=== PATIENT | male | born 1945 | race Caucasian/White ===

== ENCOUNTER 2019-07-10 22:10 | Inpatient (IN) | payer MEDICARE, OTHER ==
[~2019-07-10] VITALS: Ht 182.9 cm; Wt 67.6 kg
[2019-07-10] MEDS ORDERED: IV NORMAL SALINE 1000 ML BAG IV ONE (22:30)
--- NOTE | 2019-07-10 22:30 | NUR ---
Patient NORMA Parmar from [facility] for fever. Patient upon arrival flush, on 2L N/C satting at 95%, response to verbal commands. No distress noted. Placed in room 1B.
[2019-07-10] MEDS ORDERED: ACET-73 PO (22:36)
[2019-07-10] MEDS ORDERED: ACET-2154 PO (22:36)
[2019-07-10] MEDS ORDERED: NA P133E RC (22:36)
[2019-07-10] MEDS ORDERED: BISA10SU61 RC (22:36)
[2019-07-10] MEDS ORDERED: MAGN400O6 PO (22:36)
[2019-07-10] MEDS ORDERED: RIVA20TA PO (22:36)
[2019-07-10] MEDS ORDERED: CHOL10002 PO (22:36)
[2019-07-10] MEDS ORDERED: MULT-619 PO (22:36)
[2019-07-10] MEDS ORDERED: ROPI0.255 PO (22:36)
[2019-07-10 22:43] LABS: BASOPHILS % (AUTO) 0.1 % (0.0-2.0); EOSINOPHILS # (AUTO) 0.2 K/uL (0.0-0.7); EOSINOPHILS % (AUTO) 1.3 % (0.0-7.0); HEMATOCRIT 44.6 % (36.7-47.1); HEMOGLOBIN 14.7 g/dL (12.5-16.3); LYMPHOCYTES # (AUTO) 0.6 K/uL (20.0-40.0); LYMPHOCYTES % (AUTO) 5.3 % (20.5-51.5); MEAN CORPUSCULAR HEMOGLOBIN 28.9 uug (23.8-33.4); MEAN CORPUSCULAR HGB CONC 33 g/dL (32.5-36.3); MEAN CORPUSCULAR VOLUME 87.4 fL (73.0-96.2); MONOCYTES # (AUTO) 0.7 K/uL (2.0-10.0); MONOCYTES % (AUTO) 6.1 % (0.0-11.0); NEUTROPHILS % (AUTO) 87.2 % (38.5-71.5); PLATELET COUNT (AUTO) 161 K/uL (152-348); WHITE BLOOD COUNT (AUTO) 11.5 K/uL (3.6-10.2)
[2019-07-10 22:48] LABS: CREATININE 1.3 mg/dL (0.6-1.3)
[2019-07-10 23:01] LABS: BILIRUBIN,DIRECT 0.2 mg/dL (0.0-0.2); BILIRUBIN,TOTAL 0.9 mg/dL (0.2-1.0); TOTAL PROTEIN, SERUM 7.6 g/dL (6.4-8.2)
[2019-07-10 23:25] LABS: *BILIRUBIN,URIN NEGATIVE (NEGATIVE); *BLOOD, URINE 3+ (NEGATIVE); *CLARITY,URINE CLOUDY (CLEAR); *COLOR,URINE YELLOW (YELLOW); *KETONES,URINE NEGATIVE (NEGATIVE); LEUKOCYTE ESTERASE ,URINE 3+ (NEGATIVE); NITRITE, URINE POSITIVE (NEGATIVE); UGLUCOSE NEGATIVE (NEGATIVE)
--- NOTE | 2019-07-10 23:35 | NUR ---
Patient out of unit for ct scan via g[facility]y.
[2019-07-10 23:43] LABS: BACTERIA,URINE MANY /HPF (NONE SEEN); RBC,URINE 20-50 /HPF (0-3); SQUAMOUS EPITHELIAL CELL,UR FEW /HPF (NONE SEEN); WBC,URINE TNTC /HPF (0-3)
--- NOTE | 2019-07-10 23:56 | NUR ---
Patient back from ct scan with no distress noted.
[2019-07-11] MEDS ORDERED: CEFTRIAXONE 1 G in IV DEXTROSE 5% 50 ML IV ONE ×2
[2019-07-11] MEDS ORDERED: LEVOFLOXACIN 750 MG/D5W 150 ML PIGGYBACK IV ONE
--- NOTE | 2019-07-11 00:08 | NUR ---
Patient shivering, rectal temp is 99.0. ERMD aware.
[2019-07-11] MEDS ORDERED: CEFTRIAXONE /D5W 50ML IVPB **ER PYXIS IV ONE (00:12)
[2019-07-11] MEDS ORDERED: LEVOFLOXACIN 750MG/D5W 150 ML IV ONE (00:12)
[2019-07-11] MEDS ORDERED: ACETAMINOPHEN 650 MG SUPP.RECT RC ONE ×2 (00:30→00:33)
[2019-07-11] MEDS ORDERED: ACETAMINOPHEN 325 MG SUPP RC ONE (00:30)
--- NOTE | 2019-07-11 00:58 | NUR ---
Dr Moreno speaking with Jose Ott NP neon glass blower for [facility].
[2019-07-11] MEDS ORDERED: ACETAMINOPHEN 325 MG TABLET PO PRN (01:00)
[2019-07-11] MEDS ORDERED: MORPHINE SULFATE 2 MG/1 ML DISP.SYRIN IV PRN (01:00)
[2019-07-11] MEDS ORDERED: ONDANSETRON 4 MG/2 ML VIAL IV PRN (01:00)
[2019-07-11] MEDS ORDERED: TEMAZEPAM 7.5 MG CAPSULE PO PRN (01:00)
[2019-07-11] MEDS ORDERED: HYDROCODONE/APAP 5-325MG TABLET PO PRN (01:00)
[2019-07-11] MEDS ORDERED: MAGNESIUM HYDROXIDE 30 ML LIQUID UDC PO PRN (01:00)
[2019-07-11] MEDS ORDERED: Z GUARD REMEDY PASTE 57 GM TUBE TOP PRN (01:00)
--- NOTE | 2019-07-11 01:30 | NUR ---
Transfered to 3rd floor Tele via gurny with no distress noted.
[2019-07-11] MEDS: PANTOPRAZOLE SODIUM 40 MG TABLET.DR PO SCH (06:57)
--- NOTE | 2019-07-11 07:30 | NUR ---
Patient calm and comfortable resting in bed with no signs of distress; patient will continue to be monitored.
[2019-07-11 09:30] LABS: BASOPHILS % (AUTO) 0.1 % (0.0-2.0); EOSINOPHILS # (AUTO) 0.1 K/uL (0.0-0.7); EOSINOPHILS % (AUTO) 0.2 % (0.0-7.0); HEMATOCRIT 40.8 % (36.7-47.1); HEMOGLOBIN 13.3 g/dL (12.5-16.3); LYMPHOCYTES # (AUTO) 1.5 K/uL (20.0-40.0); LYMPHOCYTES % (AUTO) 7.1 % (20.5-51.5); MEAN CORPUSCULAR HEMOGLOBIN 28.6 uug (23.8-33.4); MEAN CORPUSCULAR HGB CONC 33 g/dL (32.5-36.3); MEAN CORPUSCULAR VOLUME 87.8 fL (73.0-96.2); MONOCYTES % (AUTO) 9.1 % (0.0-11.0); NEUTROPHILS # (AUTO) 17.9 K/uL (1.8-8.9); NEUTROPHILS % (AUTO) 83.5 % (38.5-71.5); PLATELET COUNT (AUTO) 155 K/uL (152-348); RED BLOOD CELL COUNT(AUTO) 4.65 MIL/uL (4.06-5.63); WHITE BLOOD COUNT (AUTO) 21.5 K/uL (3.6-10.2)
[2019-07-11 09:40] LABS: CARBON DIOXIDE 25 mmol/L (21-32); CHLORIDE 106 mmol/L (98-107); CREATININE 1.4 mg/dL (0.6-1.3); GLUCOSE 125 mg/dL (74-106); POTASSIUM 4.5 mmol/L (3.5-5.1); UREA NITROGEN, BLOOD 22 mg/dL (7-18)
[2019-07-11 11:17] VITALS: BP_SYST 92; BP_SYST 97; BP_DIAS 58
--- NOTE | 2019-07-11 13:00 | NUR ---
Patient noted with a increase of wbc from 11.5 to 21.5 and a slight decrease in baseline blood presure; Md notified and placed orders for 1L Bolus of Ns and stool sample of cdiff. Orders received and carried out.
[2019-07-11] MEDS: TOBRAMYCIN/DEXAMETH OPHT DROP 2.5 ML BOTTLE EACHEYE SCH ×4 (13:15→23:34)
[2019-07-11] MEDS ORDERED: IV NS 1000 ML 1,000 ML IV ONE (13:15)
[2019-07-11 15:45] VITALS: BP 93/50
--- NOTE | 2019-07-11 16:00 | NUR ---
Patient blood pressure increased and back at basline .
[2019-07-11] MEDS: IV NS 1000 ML 1,000 ML IV PRN (16:36)
--- NOTE | 2019-07-11 18:36 | NUR ---
Patient mildly hypotensive through out shift. Orders were give 1L Bolus of NS ; patient given bolus and showed increased in blood pressure; MD then placed orders for patient to be placed on Mckeon catheter; orders received and carried out. Patient at baseline mental status ; nonverbal with very mild response to verbal stimuli . Report given to oncoming nurse.
--- NOTE | 2019-07-11 19:45 | NUR ---
Received patient awake in bed, unable to express needs, mumbles words when spoken to. IVF running on the right forearm, no signs of infection or infiltration noted. SCD pumps intact. Vitals WNL. Safety measure initiated. Bed is low and locked, call light within reach, bed alarm on. Will continue to monitor.
[2019-07-11 19:49] VITALS: BP 112/56
[2019-07-11] MEDS: MEROPENEM 500 MG in IV NORMAL SALINE 50 ML IV SCH (19:52)
--- NOTE | 2019-07-11 22:00 | NUR ---
RECEIVED PT AWAKE, ALERT AND ORIENTEDX2. PT SHOW SNO SIGNS OF ACUTE DISTRESS. IV INTACT. SAFETY AND COMFORT PROVIDED. PT BISWAS INTACT. PT ON NASAL CANNULA. WILL CONTINUE TO MONITOR.
[2019-07-12] VITALS: BP 116/65
[2019-07-12] MEDS ORDERED: CEFTRIAXONE 1 G in IV DEXTROSE 5% 50 ML IV SCH ×2
[2019-07-12 04:00] VITALS: BP 118/67
[2019-07-12] MEDS: TOBRAMYCIN/DEXAMETH OPHT DROP 2.5 ML BOTTLE EACHEYE SCH ×5 (04:07→20:19)
[2019-07-12] MEDS: IV NS 1000 ML 1,000 ML IV PRN ×2 (04:54→19:18)
[2019-07-12] MEDS: MEROPENEM 500 MG in IV NORMAL SALINE 50 ML IV SCH ×2 (05:42→19:15)
[2019-07-12] MEDS: PANTOPRAZOLE SODIUM 40 MG TABLET.DR PO SCH (06:29)
--- NOTE | 2019-07-12 06:30 | NUR ---
PT SLEPT INTERMITTENTLY. PT SHOWS NO SIGNS OF ACUTE DISTRESS. IV INTACT. BISWAS INTACT AND PT ON NASAL CANNULA. PRESCRIBED MEDICATION GIVEN AND PT TOLERATED IT WELL. SAFETY AND COMFORT PROVIDED. WILL ENDORSE TO INCOMING NURSE FOR CONTINUITY OF CARE.
[2019-07-12 06:45] LABS: CREATININE 1.2 mg/dL (0.6-1.3); MAGNESIUM 1.8 mg/dL (1.8-2.4); PHOSPHOROUS 3.2 mg/dL (2.5-4.9); POTASSIUM 3.9 mmol/L (3.5-5.1)
[2019-07-12 06:50] LABS: BASOPHILS % (AUTO) 0.1 % (0.0-2.0); EOSINOPHILS # (AUTO) 0.2 K/uL (0.0-0.7); EOSINOPHILS % (AUTO) 1.9 % (0.0-7.0); HEMATOCRIT 37.2 % (36.7-47.1); HEMOGLOBIN 12.4 g/dL (12.5-16.3); LYMPHOCYTES # (AUTO) 1.6 K/uL (20.0-40.0); LYMPHOCYTES % (AUTO) 12.5 % (20.5-51.5); MEAN CORPUSCULAR HEMOGLOBIN 28.7 uug (23.8-33.4); MEAN CORPUSCULAR HGB CONC 33 g/dL (32.5-36.3); MEAN CORPUSCULAR VOLUME 86.3 fL (73.0-96.2); MONOCYTES # (AUTO) 1.1 K/uL (2.0-10.0); NEUTROPHILS # (AUTO) 9.5 K/uL (1.8-8.9); NEUTROPHILS % (AUTO) 76.5 % (38.5-71.5); PLATELET COUNT (AUTO) 140 K/uL (152-348); RED BLOOD CELL COUNT(AUTO) 4.31 MIL/uL (4.06-5.63); WHITE BLOOD COUNT (AUTO) 12.4 K/uL (3.6-10.2)
--- NOTE | 2019-07-12 07:30 | NUR ---
Patient calm and comfortable throughout shift with no signs of distress; patient will continue to be monitored.
[2019-07-12 11:19] VITALS: BP 147/70
[2019-07-12 15:30] VITALS: BP 150/70
--- NOTE | 2019-07-12 19:10 | NUR ---
Patient calmly resting in bed through out shift. Patient with stable vital signs. patient had swallow eval and is npo status due to dysphagia. Patient kept comfortable. Report given to oncoming nurse.
[2019-07-13] VITALS: BP 140/74
[2019-07-13] MEDS: TOBRAMYCIN/DEXAMETH OPHT DROP 2.5 ML BOTTLE EACHEYE SCH ×6 (01:24→20:32)
[2019-07-13 04:00] VITALS: BP 129/84
[2019-07-13] MEDS: MEROPENEM 500 MG in IV NORMAL SALINE 50 ML IV SCH (05:48)
[2019-07-13] MEDS: PANTOPRAZOLE SODIUM 40 MG TABLET.DR PO SCH (06:07)
[2019-07-13 06:39] LABS: BASOPHILS % (AUTO) 0.1 % (0.0-2.0); EOSINOPHILS # (AUTO) 0.2 K/uL (0.0-0.7); EOSINOPHILS % (AUTO) 2.5 % (0.0-7.0); HEMATOCRIT 40.1 % (36.7-47.1); HEMOGLOBIN 13.1 g/dL (12.5-16.3); LYMPHOCYTES # (AUTO) 1.2 K/uL (20.0-40.0); LYMPHOCYTES % (AUTO) 14.8 % (20.5-51.5); MEAN CORPUSCULAR HEMOGLOBIN 28.4 uug (23.8-33.4); MEAN CORPUSCULAR HGB CONC 33 g/dL (32.5-36.3); MEAN CORPUSCULAR VOLUME 86.6 fL (73.0-96.2); MONOCYTES # (AUTO) 0.9 K/uL (2.0-10.0); MONOCYTES % (AUTO) 10.8 % (0.0-11.0); NEUTROPHILS # (AUTO) 5.8 K/uL (1.8-8.9); NEUTROPHILS % (AUTO) 71.8 % (38.5-71.5); PLATELET COUNT (AUTO) 153 K/uL (152-348); RED BLOOD CELL COUNT(AUTO) 4.63 MIL/uL (4.06-5.63)
[2019-07-13 06:51] LABS: WHITE BLOOD COUNT (AUTO) 8.1 K/uL (3.6-10.2)
[2019-07-13 06:57] LABS: BILIRUBIN,TOTAL 0.9 mg/dL (0.2-1.0); CREATININE 1.1 mg/dL (0.6-1.3); MAGNESIUM 1.8 mg/dL (1.8-2.4); PHOSPHOROUS 3.2 mg/dL (2.5-4.9); POTASSIUM 3.7 mmol/L (3.5-5.1)
--- NOTE | 2019-07-13 07:10 | NUR ---
RECEIVED PATIENT RESTING IN BED SLEEPING. NO ACUTE DISTRESS NOTED. BED IN LOWEST POSITION, SIDE RAILS UP X2, CALL LIGHT WITHIN REACH. WILL CONTINUE TO MONITOR.
[2019-07-13] MEDS: IV NS 1000 ML 1,000 ML IV PRN ×2 (11:13→23:17)
[2019-07-13 11:46] VITALS: BP 166/84
[2019-07-13 15:14] VITALS: BP 153/76
[2019-07-13] MEDS: CEFTRIAXONE 1 G in IV DEXTROSE 5% 50 ML IV SCH (15:58)
--- NOTE | 2019-07-13 18:08 | NUR ---
PATIENT SLEPT INTERMITTENTLY THROUGHOUT DAY. PATIENT PASSED SWALLOW EVALUATION WITH PUREED FOOD AND HONEY THICK LIQUIDS. NO ACUTE DISTRESS THROUGHOUT SHIFT. SAFETY MEASURES PROVIDED. WILL ENDORSE TO ONCOMING NURSE.
--- NOTE | 2019-07-13 19:25 | NUR ---
Received patient awake in bed. No signs or symptoms of distress or SOB. On 2 L oxygen via NC, tolerating well. R forearm IV is patent and intact. Mckeon catheter is patent and intact, urine is flowing adequately. Physical assessment done. Pain assessment done. All current needs met and anticipated. Bed is in low position, and two side rails up for safety. Call light and frequently used items within reach. Will continue to monitor and give care.
[2019-07-13 19:45] VITALS: BP 126/69
[2019-07-14] MEDS: TOBRAMYCIN/DEXAMETH OPHT DROP 2.5 ML BOTTLE EACHEYE SCH ×6 (00:19→21:21)
[2019-07-14 04:06] VITALS: BP 144/72
[2019-07-14 06:22] LABS: BASOPHILS % (AUTO) 0.2 % (0.0-2.0); EOSINOPHILS # (AUTO) 0.3 K/uL (0.0-0.7); EOSINOPHILS % (AUTO) 4.3 % (0.0-7.0); HEMATOCRIT 37.4 % (36.7-47.1); HEMOGLOBIN 12.4 g/dL (12.5-16.3); LYMPHOCYTES # (AUTO) 1.6 K/uL (20.0-40.0); LYMPHOCYTES % (AUTO) 24.3 % (20.5-51.5); MEAN CORPUSCULAR HEMOGLOBIN 28.5 uug (23.8-33.4); MEAN CORPUSCULAR HGB CONC 33 g/dL (32.5-36.3); MEAN CORPUSCULAR VOLUME 86.1 fL (73.0-96.2); MONOCYTES # (AUTO) 0.9 K/uL (2.0-10.0); MONOCYTES % (AUTO) 14.6 % (0.0-11.0); NEUTROPHILS # (AUTO) 3.7 K/uL (1.8-8.9); NEUTROPHILS % (AUTO) 56.6 % (38.5-71.5); PLATELET COUNT (AUTO) 165 K/uL (152-348); RED BLOOD CELL COUNT(AUTO) 4.35 MIL/uL (4.06-5.63); WHITE BLOOD COUNT (AUTO) 6.5 K/uL (3.6-10.2)
[2019-07-14] MEDS: PANTOPRAZOLE SODIUM 40 MG TABLET.DR PO SCH (06:26)
[2019-07-14 06:44] LABS: CARBON DIOXIDE 27 mmol/L (21-32); CHLORIDE 107 mmol/L (98-107); GLUCOSE 91 mg/dL (74-106); MAGNESIUM 1.7 mg/dL (1.8-2.4); PHOSPHOROUS 3.1 mg/dL (2.5-4.9); POTASSIUM 3.5 mmol/L (3.5-5.1); UREA NITROGEN, BLOOD 14 mg/dL (7-18)
--- NOTE | 2019-07-14 07:05 | NUR ---
RECEIVED PATIENT AWAKE ALERT TO SELF CONFUSED AND DISORIENTED UNABLE TO VERBALISE NEEDS ALL NEEDS MUST BE ANTICIPATED AND SATISFIED MAX ASSIST FOR ALL ADL.TURNED AND REPOSITIONED Q2H ON O2 AT 2L/M BY NASAL [place]A WITH NO SHORTNESS OF BREATH AT THIS TIME IVF IN PROGRESS ORDERED MADE COMFORTABLE WILL CONTINUE TO OBSERVE.
--- NOTE | 2019-07-14 07:07 | NUR ---
All needs met and anticipated. Kept patient clean, dry, and comfortable. Remained on 2 L of oxygen; tolerated well. Right forearm IV intact; fluids flowing at the appropriate rate. Mckeon cath is patent and intact. Will endorse to oncoming nurse.
[2019-07-14 10:06] LABS: A/G RATIO 0.7 (0.7-1.7); ALBUMIN 2.6 g/dL (2.9-4.4); ALPHA-1-GLOBULIN 0.3 g/dL (0.0-0.4); ALPHA-2-GLOBULIN 0.7 g/dL (0.4-1.0); BETA GLOBULIN 1.2 g/dL (0.7-1.3); GAMMA GLOBULIN 1.3 g/dL (0.4-1.8); GLOBULIN, TOTAL 3.5 g/dL (2.2-3.9); M-SPIKE Not Observed g/dL (Not Observed)
[2019-07-14 11:17] VITALS: BP_SYST 132; BP_SYST 153; BP_DIAS 71; BP_DIAS 91
[2019-07-14] MEDS: IV NS 1000 ML 1,000 ML IV PRN (12:28)
--- NOTE | 2019-07-14 12:29 | NUR ---
PER THE SPEECH AND LANGUAGE THERAPIST PATIENT WILL NEED VIDEO SWALLOW TO CONFIRM THAT HE IS NOT ASPIRATING [employer]ER NOTIFIED WITH NEW ORDERS AND NOTED.
--- NOTE | 2019-07-14 13:11 | NUR ---
DR VELEZ HERE TO SEE PATIENT WITH NEW ORDERS AND NOTED.
[2019-07-14] MEDS: CEFTRIAXONE 1 G in IV DEXTROSE 5% 50 ML IV SCH (15:37)
[2019-07-14 16:08] VITALS: BP 150/76
[2019-07-14] MEDS: MAGNESIUM SULFATE/D5W 100 ML IV SCH ×2 (16:24→18:25)
--- NOTE | 2019-07-14 16:30 | NUR ---
MAG LEVEL IS 1.7 WITH NEW REPLACEMENT MAG ORDERS AND NOTED
--- NOTE | 2019-07-14 18:00 | NUR ---
PATIENTS IS HERE AND AWARE THAT PATIENT IS SCHEDULED FOR VIDEO SWALLOW STUDY TOMORROW AND SHE EXPRESSED UNDERSTANDING
[2019-07-14 19:49] VITALS: BP 140/69
--- NOTE | 2019-07-14 20:00 | NUR ---
Pt in bed, head of bed elevated to 90 degrees, no signs of any pain or discomfort. Breathing comfortably in room air, 95% O2 saturation. Not in any active distress. Aspiration precautions maintained. Will continue to monitor.
[2019-07-14] MEDS: Z GUARD REMEDY PASTE 57 GM TUBE TOP SCH (21:21)
[2019-07-14] MEDS: TAMSULOSIN HCL 0.4 MG CAP.SR.24H PO SCH (21:21)
[2019-07-15] MEDS: TOBRAMYCIN/DEXAMETH OPHT DROP 2.5 ML BOTTLE EACHEYE SCH ×6 (00:03→20:43)
[2019-07-15 04:00] VITALS: BP 150/73
[2019-07-15] MEDS: IV NS 1000 ML 1,000 ML IV PRN ×2 (05:06→22:21)
--- NOTE | 2019-07-15 06:00 | NUR ---
Pt stable throughout the night. No acute changes. Skin care provided.Photos of wounds taken. Noted with L buttocks cheeks healed excoriation, and R buttocks open excoriation. zgard applied as ordered. Offloaded. Will continue to monitor and endorse accordingly.
[2019-07-15] MEDS: PANTOPRAZOLE SODIUM 40 MG TABLET.DR PO SCH (06:41)
[2019-07-15 06:46] LABS: CARBON DIOXIDE 27 mmol/L (21-32); CHLORIDE 106 mmol/L (98-107); CREATININE 0.9 mg/dL (0.6-1.3); GLUCOSE 109 mg/dL (74-106); MAGNESIUM 2.1 mg/dL (1.8-2.4); POTASSIUM 3.6 mmol/L (3.5-5.1); UREA NITROGEN, BLOOD 9 mg/dL (7-18)
--- NOTE | 2019-07-15 07:10 | NUR ---
RECEIVED PATIENT AWAKE ALERT TO SELF MAKES GOOD EYE CONTACT BUT IS NON VERBAL ALL NEEDS ANTICIPATED AND SATISFIED REQUIRES MAX ASSIST FOR ALL ADL TURNED AND REPOSITIONED Q2H WITH HEELS FLOATED REMAIN ON IVF ORDERED WITH NO S/S OF INFILTERATION ON SITE AWAITING FOR VIDEO SWALLOW ORDERED TODAY.
[2019-07-15] MEDS: Z GUARD REMEDY PASTE 57 GM TUBE TOP SCH ×2 (08:24→20:46)
[2019-07-15 11:07] VITALS: BP 139/78
[2019-07-15 11:10] VITALS: BP 139/78
--- NOTE | 2019-07-15 11:57 | NUR ---
PATIENT TAKEN TO THE RADIOLOGY DEPT FOR VIDEO SWALLOW ORDERED AND BACK TO HIS ROOM AND PER THE SLT ITS OKAY FOR PATIENT TO CONTINUE WITH SAME DIET AND LIQUIDS HONEY THICK
[2019-07-15] MEDS ORDERED: BARIUM SULFATE 240 ML ORAL.SUSP PO ONE (12:00)
[2019-07-15] MEDS ORDERED: BARIUM SULFATE 148 GM SUSP.RECON PO ONE (12:00)
[2019-07-15 15:17] VITALS: BP 156/82
[2019-07-15] MEDS: CEFTRIAXONE 1 G in IV DEXTROSE 5% 50 ML IV SCH (16:03)
--- NOTE | 2019-07-15 18:00 | NUR ---
REMAIN ON IV ATB ORDERED WITH NO ADVERSE OR ALLERGIC REACTIONS AT THIS TIME IV SITE CHANGED TO HIS RIGHT WRIST TOLERATED PROCEDURE WELL MADE COMFORTABLE AND WILL CONTINUE TO OBSERVE.
[2019-07-15 20:16] VITALS: BP 118/72
[2019-07-15] MEDS: TAMSULOSIN HCL 0.4 MG CAP.SR.24H PO SCH (20:44)
[2019-07-16] MEDS: TOBRAMYCIN/DEXAMETH OPHT DROP 2.5 ML BOTTLE EACHEYE SCH ×5 (00:29→16:16)
[2019-07-16 04:21] VITALS: BP 131/66
[2019-07-16] MEDS: PANTOPRAZOLE SODIUM 40 MG TABLET.DR PO SCH (06:00)
--- NOTE | 2019-07-16 07:15 | NUR ---
RECEIVED PATIENT RESTING IN BED, ASLEEP. NO ACUTE DISTRESS NOTED. BED IN LOWEST POSITION, SIDE RAILS UP X2, CALL LIGHT WITHIN REACH. WILL CONTINUE TO MONITOR.
[2019-07-16] MEDS: Z GUARD REMEDY PASTE 57 GM TUBE TOP SCH (08:18)
[2019-07-16] MEDS ORDERED: CEFT1FRO2 IV (12:10)
[2019-07-16] MEDS ORDERED: TAMS-3 PO (12:10)
[2019-07-16 15:59] VITALS: BP 147/76
[2019-07-16] MEDS: CEFTRIAXONE 1 G in IV DEXTROSE 5% 50 ML IV SCH (16:16)
--- NOTE | 2019-07-16 17:30 | NUR ---
Patient discharged to [facility]. No acute distress. Patient left via ambulance.
== END 2019-07-16 17:45 | DRG 871 ==
LOC: ER 22:14 → TELE3 07-11 00:59 → MEDSURG3 07-13 10:07
PROVIDERS: ADMIT Nurse Practitioner Acute Care; ATTEND Internal Medicine
DX: A41.9 Sepsis, unspecified organism (principal); G93.41 Metabolic encephalopathy; N17.0 Acute kidney failure with tubular necrosis; N39.0 Urinary tract infection, site not specified; N13.30 Unspecified hydronephrosis; E44.1 Mild protein-calorie malnutrition; J98.11 Atelectasis; R65.20 Severe sepsis without septic shock; B96.20 Unspecified Escherichia coli [E. coli] as the cause of diseases classified elsewhere; G20 Parkinson's disease; M46.86 Other specified inflammatory spondylopathies, lumbar region; Z86.718 Personal history of other venous thrombosis and embolism; Z79.01 Long term (current) use of anticoagulants; Z68.20 Body mass index [BMI] 20.0-20.9, adult; F02.80 Dementia in other diseases classified elsewhere, unspecified severity, without behavioral disturbance, psychotic disturbance, mood disturbance, and anxiety; Z86.73 Personal history of transient ischemic attack (TIA), and cerebral infarction without residual deficits; R13.10 Dysphagia, unspecified; M41.9 Scoliosis, unspecified; K21.9 Gastro-esophageal reflux disease without esophagitis; I10 Essential (primary) hypertension; E83.42 Hypomagnesemia; M19.90 Unspecified osteoarthritis, unspecified site; I25.10 Atherosclerotic heart disease of native coronary artery without angina pectoris; M62.81 Muscle weakness (generalized)
CPT/HCPCS: 36415; 70030-TC; 70450; 71045; 74230; 76770; 83605; 83735; 83970; 84100; 84155; 84165; 84443; 85025; 85730; 87040; 87077; 87086; 87400; 93005; A4663; C1758; G0378; J0696; J1956; J2185; J3475; J3490; J7030; J7060

== ENCOUNTER 2020-03-21 20:43 | Inpatient (IN) | payer MEDICARE, OTHER ==
[~2020-03-21] VITALS: Ht 182.9 cm; Wt 66.7 kg
[~2020-03-21 20:43] MED LIST: ACET-2154 PO; ACET-73 PO; BISA10SU61 RC; CEFT1FRO2 IV; CHOL10002 PO; MAGN400O6 PO; MULT-619 PO; NA P133E RC; RIVA20TA PO; ROPI0.255 PO; TAMS-3 PO
[2020-03-21] MEDS ORDERED: CRAN450T9 PO (21:03)
[2020-03-21 21:17] LABS: BASOPHILS # (AUTO) 0.1 K/uL (0.0-8.0); HEMATOCRIT 51.9 % (36.7-47.1); HEMOGLOBIN 17.5 g/dL (12.5-16.3); LYMPHOCYTES # (AUTO) 1.1 K/uL (20.0-40.0); LYMPHOCYTES % (AUTO) 13.9 % (20.5-51.5); MEAN CORPUSCULAR HEMOGLOBIN 29.5 uug (23.8-33.4); MEAN CORPUSCULAR HGB CONC 34 g/dL (32.5-36.3); MEAN CORPUSCULAR VOLUME 87.3 fL (73.0-96.2); MONOCYTES # (AUTO) 0.3 K/uL (2.0-10.0); MONOCYTES % (AUTO) 3.6 % (0.0-11.0); NEUTROPHILS # (AUTO) 6.2 K/uL (1.8-8.9); NEUTROPHILS % (AUTO) 81.5 % (38.5-71.5); PLATELET COUNT (AUTO) 245 K/uL (152-348); RED BLOOD CELL COUNT(AUTO) 5.95 MIL/uL (4.06-5.63); WHITE BLOOD COUNT (AUTO) 7.7 K/uL (3.6-10.2)
[2020-03-21 21:25] LABS: CARBON DIOXIDE 19 mmol/L (21-32); CHLORIDE 99 mmol/L (98-107); CREATININE 1.9 mg/dL (0.6-1.3); GLUCOSE 222 mg/dL (74-106); POTASSIUM 4.5 mmol/L (3.5-5.1); UREA NITROGEN, BLOOD 35 mg/dL (7-18)
[2020-03-21] MEDS ORDERED: CEFTRIAXONE /D5W 50ML IVPB **ER PYXIS IV ONE (21:26)
[2020-03-21] MEDS ORDERED: CEFTRIAXONE 1 G in IV DEXTROSE 5% 50 ML IV ONE (21:30)
[2020-03-21 21:37] LABS: ALANINE AMINOTRANSFERASE 55 U/L (16-63); ALKALINE PHOSPHATASE 79 U/L (50-136); ASPARTATE AMINOTRANSFERASE 48 U/L (15-37); BILIRUBIN,TOTAL 1.6 mg/dL (0.2-1.0); CREATINE KINASE, TOTAL 75 U/L (39-308); LACTATE DEHYDROGENASE 195 U/L (85-227); TOTAL PROTEIN, SERUM 8.6 g/dL (6.4-8.2)
[2020-03-21 21:56] LABS: FERRITIN 252 ng/mL (26-388)
[2020-03-21 22:00] LABS: ABG BASE EXCESS -6.6 mmol/L; ABG HCO3 15.8 mmol/L; ABG PCO2 25.5 mmHg (35.0-45.0); ABG PH 7.409 (7.350-7.450); ABG PO2 70.1 mmHg (75.0-100.0); ABG SITE RIGHT RADIAL; ABG TOTAL HEMOGLOBIN 17.6 G/dL (13.5-18.0); COHb 1.2 % (0.5-1.5); MetHb 0.3 % (0.0-1.5); O2Hb 92.5 % (94.0-97.0)
[2020-03-21] MEDS ORDERED: AZITHROMYCIN IV 500 MG in IV DEXTROSE 5% 250 ML IV ONE (22:00)
[2020-03-21] MEDS ORDERED: IV NORMAL SALINE 1000 ML BAG IV ONE (22:00)
[2020-03-21] MEDS ORDERED: AZITHROMYCIN 500MG/ D5W 250ML IVPB **ER PYXIS ONLY IV ONE (22:05)
[2020-03-21] MEDS ORDERED: ACETAMINOPHEN 325 MG TABLET PO PRN (23:00)
[2020-03-21] MEDS ORDERED: ONDANSETRON 4 MG/2 ML VIAL IV PRN (23:00)
[2020-03-21] MEDS ORDERED: MAGNESIUM HYDROXIDE 30 ML LIQUID UDC PO PRN (23:00)
[2020-03-21] MEDS ORDERED: FLEET ENEMA 133 ML BOTTLE RC PRN (23:00)
[2020-03-21] MEDS ORDERED: ZOLPIDEM 5 MG TABLET PO PRN (23:00)
[2020-03-21] MEDS ORDERED: HYDROCODONE/APAP 5-325MG TABLET PO PRN (23:00)
[2020-03-21] MEDS ORDERED: MORPHINE SULFATE 2 MG/1 ML DISP.SYRIN IV PRN (23:00)
[2020-03-21] MEDS ORDERED: Z GUARD REMEDY PASTE 57 GM TUBE TOP PRN (23:00)
[2020-03-21] MEDS ORDERED: BISACODYL 10 MG SUPP.RECT RC PRN (23:00)
[2020-03-21 23:15] VITALS: BP 96/66
[2020-03-21] MEDS ORDERED: VANCOMYCIN IV 1,250 MG in IV DEXTROSE 5% 250 ML IV ONE (23:15)
[2020-03-21 23:35] LABS: *BILIRUBIN,URIN 2+ (NEGATIVE); *BLOOD, URINE 3+ (NEGATIVE); *CLARITY,URINE CLOUDY (CLEAR); *COLOR,URINE AMBER (YELLOW); *KETONES,URINE 1+ (NEGATIVE); *UROBILINOGEN,URINE >=8.0 E.U./dl (NORMAL); LEUKOCYTE ESTERASE ,URINE 1+ (NEGATIVE); NITRITE, URINE NEGATIVE (NEGATIVE); PH,URINE 5.5 (5.0-8.0); UGLUCOSE TRACE (NEGATIVE)
[2020-03-22] VITALS (13 sets, daily range): BP systolic 86–126; BP diastolic 39–77
[2020-03-22 00:12] LABS: RBC,URINE 50-80 /HPF (0-3)
[2020-03-22 00:13] LABS: BACTERIA,URINE MANY /HPF (NONE SEEN)
[2020-03-22 00:14] LABS: SQUAMOUS EPITHELIAL CELL,UR MODERATE /HPF (NONE SEEN); WBC,URINE 20-50 /HPF (0-3)
[2020-03-22 00:15] LABS: URIC ACID CRYSTALS,URINE MODERATE /HPF (NONE SEEN)
[2020-03-22] MEDS: IV NS 1000 ML 1,000 ML IV PRN (00:50)
[2020-03-22] MEDS: PIPERACILLIN SODIUM/TAZOBACTAM 3.375 G in IV DEXTROSE 5% 50 ML IV SCH ×4 (00:59→17:22)
[2020-03-22 05:11] LABS: BASOPHILS % (AUTO) 0.1 % (0.0-2.0); EOSINOPHILS % (AUTO) 0.1 % (0.0-7.0); HEMATOCRIT 44.7 % (36.7-47.1); HEMOGLOBIN 14.9 g/dL (12.5-16.3); LYMPHOCYTES # (AUTO) 0.9 K/uL (20.0-40.0); MEAN CORPUSCULAR HGB CONC 33 g/dL (32.5-36.3); MEAN CORPUSCULAR VOLUME 87.1 fL (73.0-96.2); MONOCYTES # (AUTO) 0.3 K/uL (2.0-10.0); MONOCYTES % (AUTO) 6.3 % (0.0-11.0); NEUTROPHILS # (AUTO) 2.9 K/uL (1.8-8.9); NEUTROPHILS % (AUTO) 71.5 % (38.5-71.5); PLATELET COUNT (AUTO) 179 K/uL (152-348); RED BLOOD CELL COUNT(AUTO) 5.13 MIL/uL (4.06-5.63); WHITE BLOOD COUNT (AUTO) 4.1 K/uL (3.6-10.2)
[2020-03-22 05:23] LABS: ALANINE AMINOTRANSFERASE 65 U/L (16-63); ALKALINE PHOSPHATASE 54 U/L (50-136); ASPARTATE AMINOTRANSFERASE 42 U/L (15-37); BILIRUBIN,TOTAL 1.3 mg/dL (0.2-1.0); CARBON DIOXIDE 23 mmol/L (21-32); CHLORIDE 104 mmol/L (98-107); CREATININE 1.7 mg/dL (0.6-1.3); GLUCOSE 229 mg/dL (74-106); MAGNESIUM 1.7 mg/dL (1.8-2.4); PHOSPHOROUS 2.9 mg/dL (2.5-4.9); POTASSIUM 4.2 mmol/L (3.5-5.1); TOTAL PROTEIN, SERUM 6.7 g/dL (6.4-8.2); UREA NITROGEN, BLOOD 37 mg/dL (7-18)
[2020-03-22 05:31] LABS: THYROID STIMULATING HORMONE 0.894 mIU/mL (0.358-3.740)
[2020-03-22 05:35] LABS: CHOLESTEROL 77 mg/dL (<200); HDL CHOLESTEROL 42 mg/dL (40-60); TRIGLYCERIDES 43 MG/DL (30-150)
[2020-03-22] MEDS: PANTOPRAZOLE SODIUM 40 MG TABLET.DR PO SCH (06:18)
[2020-03-22] MEDS ORDERED: ALBUTEROL SULFATE 2.5 MG/3 ML NEBU NEB PRN (08:45)
[2020-03-22] MEDS ORDERED: IPRATROPIUM BROMIDE 0.5 MG/2.5 ML NEBU NEB PRN (08:45)
[2020-03-22] MEDS: ropiniROLE 0.25 MG TABLET PO SCH ×4 (09:00→17:17)
[2020-03-22] MEDS ORDERED: Medication Not On Formulary EA (Cranberry Fruit (Cranberry) 450 MG) PO SCH (09:00)
[2020-03-22] MEDS ORDERED: MAGNESIUM SULFATE/D5W 100 ML IV SCH (09:45)
[2020-03-22] MEDS: MULTIVITAMINS,THERAPEUTIC TABLET PO SCH (11:18)
[2020-03-22] MEDS: CHOLECALCIFEROL 1,000 UNIT TABLET PO SCH (11:19)
[2020-03-22] MEDS ORDERED: RIVAROXABAN 15 MG TABLET PO SCH (17:00)
[2020-03-22] MEDS: VANCOMYCIN IV 1,000 MG in IV DEXTROSE 5% 250 ML IV SCH (18:03)
[2020-03-22] MEDS: TAMSULOSIN HCL 0.4 MG CAP.SR.24H PO SCH (21:52)
[2020-03-23 00:26] VITALS: BP 112/66
[2020-03-23] MEDS: PIPERACILLIN SODIUM/TAZOBACTAM 3.375 G in IV DEXTROSE 5% 50 ML IV SCH ×4 (00:32→17:42)
[2020-03-23] MEDS: IV NS 1000 ML 1,000 ML IV PRN ×2 (00:32→17:48)
[2020-03-23 04:00] VITALS: BP 108/64
[2020-03-23 06:07] LABS: BASOPHILS % (AUTO) 0.1 % (0.0-2.0); EOSINOPHILS # (AUTO) 0.1 K/uL (0.0-0.7); EOSINOPHILS % (AUTO) 1.5 % (0.0-7.0); HEMATOCRIT 37.2 % (36.7-47.1); HEMOGLOBIN 12.8 g/dL (12.5-16.3); LYMPHOCYTES # (AUTO) 0.8 K/uL (20.0-40.0); MEAN CORPUSCULAR HEMOGLOBIN 29.7 uug (23.8-33.4); MEAN CORPUSCULAR HGB CONC 34 g/dL (32.5-36.3); MEAN CORPUSCULAR VOLUME 86.6 fL (73.0-96.2); MONOCYTES # (AUTO) 0.3 K/uL (2.0-10.0); MONOCYTES % (AUTO) 4.5 % (0.0-11.0); NEUTROPHILS # (AUTO) 6.3 K/uL (1.8-8.9); NEUTROPHILS % (AUTO) 83.9 % (38.5-71.5); PLATELET COUNT (AUTO) 145 K/uL (152-348); WHITE BLOOD COUNT (AUTO) 7.5 K/uL (3.6-10.2)
[2020-03-23] MEDS: PANTOPRAZOLE SODIUM 40 MG TABLET.DR PO SCH (06:11)
[2020-03-23 06:30] LABS: BILIRUBIN,TOTAL 0.9 mg/dL (0.2-1.0); CREATININE 1.2 mg/dL (0.6-1.3); MAGNESIUM 2.2 mg/dL (1.8-2.4); PHOSPHOROUS 2.5 mg/dL (2.5-4.9); POTASSIUM 3.5 mmol/L (3.5-5.1); TOTAL PROTEIN, SERUM 6.3 g/dL (6.4-8.2)
[2020-03-23] MEDS: MULTIVITAMINS,THERAPEUTIC TABLET PO SCH (08:38)
[2020-03-23] MEDS: CHOLECALCIFEROL 1,000 UNIT TABLET PO SCH (08:38)
[2020-03-23] MEDS: ropiniROLE 0.25 MG TABLET PO SCH ×3 (08:39→17:29)
[2020-03-23 11:55] VITALS: BP 120/73
[2020-03-23] MEDS: VANCOMYCIN IV 1,000 MG in IV DEXTROSE 5% 250 ML IV SCH (12:52)
[2020-03-23 16:06] VITALS: BP 120/73
[2020-03-23] MEDS: TAMSULOSIN HCL 0.4 MG CAP.SR.24H PO SCH (20:10)
[2020-03-23 20:15] VITALS: BP 145/73
[2020-03-24] MEDS ORDERED: VANCOMYCIN IV 750 MG in IV DEXTROSE 5% 250 ML IV SCH ×2
[2020-03-24 00:12] VITALS: BP 124/81
[2020-03-24] MEDS: PIPERACILLIN SODIUM/TAZOBACTAM 3.375 G in IV DEXTROSE 5% 50 ML IV SCH ×5 (01:03→23:49)
[2020-03-24] MEDS: PANTOPRAZOLE SODIUM 40 MG TABLET.DR PO SCH (06:07)
[2020-03-24 06:56] LABS: CREATININE 1.1 mg/dL (0.6-1.3); POTASSIUM 3.2 mmol/L (3.5-5.1)
[2020-03-24] MEDS: MULTIVITAMINS,THERAPEUTIC TABLET NG SCH (08:54)
[2020-03-24] MEDS: CHOLECALCIFEROL 1,000 UNIT TABLET NG SCH (08:54)
[2020-03-24] MEDS: ropiniROLE 0.25 MG TABLET NG SCH ×3 (08:55→16:45)
[2020-03-24] MEDS: POTASSIUM CHLORIDE 50 ML IV SCH ×4 (09:46→13:00)
[2020-03-24 12:00] VITALS: BP 104/52
[2020-03-24] MEDS: ACETAMINOPHEN 325 MG TABLET NG PRN ×2 (12:01→20:52)
[2020-03-24] MEDS ORDERED: JEVITY 1.2 1000 ML LIQUID NG PRN (13:45)
[2020-03-24] MEDS: IV NS 1000 ML 1,000 ML IV PRN (15:22)
[2020-03-24 16:00] VITALS: BP 166/55
[2020-03-24 20:00] VITALS: BP 134/44
[2020-03-24] MEDS: TAMSULOSIN HCL 0.4 MG CAP.SR.24H PO SCH (20:52)
[2020-03-25 04:00] VITALS: BP 146/49
[2020-03-25] MEDS: ACETAMINOPHEN 325 MG TABLET NG PRN ×2 (04:55→16:02)
[2020-03-25] MEDS: IV NS 1000 ML 1,000 ML IV PRN (04:55)
[2020-03-25] MEDS: PIPERACILLIN SODIUM/TAZOBACTAM 3.375 G in IV DEXTROSE 5% 50 ML IV SCH ×3 (05:02→17:40)
[2020-03-25] MEDS: PANTOPRAZOLE SODIUM 40 MG TABLET.DR PO SCH (06:17)
[2020-03-25 06:18] LABS: BASOPHILS % (AUTO) 0.2 % (0.0-2.0); EOSINOPHILS # (AUTO) 0.1 K/uL (0.0-0.7); EOSINOPHILS % (AUTO) 0.9 % (0.0-7.0); HEMATOCRIT 30.6 % (36.7-47.1); HEMOGLOBIN 10.7 g/dL (12.5-16.3); LYMPHOCYTES # (AUTO) 0.4 K/uL (20.0-40.0); LYMPHOCYTES % (AUTO) 6.3 % (20.5-51.5); MEAN CORPUSCULAR HGB CONC 35 g/dL (32.5-36.3); MEAN CORPUSCULAR VOLUME 85.6 fL (73.0-96.2); MONOCYTES # (AUTO) 0.4 K/uL (2.0-10.0); MONOCYTES % (AUTO) 5.2 % (0.0-11.0); NEUTROPHILS # (AUTO) 5.9 K/uL (1.8-8.9); NEUTROPHILS % (AUTO) 87.4 % (38.5-71.5); PLATELET COUNT (AUTO) 128 K/uL (152-348); RED BLOOD CELL COUNT(AUTO) 3.58 MIL/uL (4.06-5.63); WHITE BLOOD COUNT (AUTO) 6.8 K/uL (3.6-10.2)
[2020-03-25 06:21] LABS: MAGNESIUM 1.5 mg/dL (1.8-2.4); PHOSPHOROUS 1.8 mg/dL (2.5-4.9); TOTAL PROTEIN, SERUM 5.5 g/dL (6.4-8.2)
[2020-03-25 06:33] LABS: POTASSIUM 2.8 mmol/L (3.5-5.1)
[2020-03-25] MEDS: ropiniROLE 0.25 MG TABLET NG SCH ×3 (08:18→16:28)
[2020-03-25] MEDS: MULTIVITAMINS,THERAPEUTIC TABLET NG SCH (08:18)
[2020-03-25] MEDS: CHOLECALCIFEROL 1,000 UNIT TABLET NG SCH (08:18)
[2020-03-25] MEDS ORDERED: MAGNESIUM SULFATE/D5W 100 ML IV SCH (09:16)
[2020-03-25] MEDS ORDERED: POTASSIUM PHOSPHATE MM 15 MMOL in IV NORMAL SALINE 250 ML IV ONE (09:30)
[2020-03-25] MEDS ORDERED: POTASSIUM CHLORIDE 20 MEQ POWDER PACKET GT ONE (09:30)
[2020-03-25] MEDS ORDERED: POTASSIUM CHLORIDE 20 MEQ POWDER PACKET NG ONE (09:30)
[2020-03-25] MEDS ORDERED: POTASSIUM CHLORIDE 50 ML IV SCH (09:30)
[2020-03-25] MEDS: MAGNESIUM SULFATE/D5W 100 ML IV SCH ×4 (09:37→12:53)
[2020-03-25] MEDS: POTASSIUM PHOSPHATE MM 7.5 MMOL in IV DEXTROSE 5% 100 ML IV SCH ×2 (10:14→13:06)
[2020-03-25 11:44] VITALS: BP 133/77
[2020-03-25] MEDS: POTASSIUM CHLORIDE 50 ML IV SCH ×4 (14:09→17:17)
[2020-03-25] MEDS ORDERED: LACT-209 NG (15:41)
[2020-03-25] MEDS ORDERED: ROPI0.252 NG (15:41)
[2020-03-25] MEDS ORDERED: ACET325T53 NG (15:41)
[2020-03-25] MEDS ORDERED: PIPE3.379 IV (15:41)
[2020-03-25] MEDS ORDERED: PANT40TA2 NG (15:41)
[2020-03-25] MEDS ORDERED: ALBU2.5V7 NEB (15:41)
[2020-03-25] MEDS ORDERED: HYDR-3972 NG (15:41)
[2020-03-25 16:03] VITALS: BP 140/65
[2020-03-25] MEDS ORDERED: FLUCONAZOLE 200 MG/NS 100ML IV 200 MG in PREMIXED 1 EACH IV ONE (16:30)
== END 2020-03-25 19:45 | DRG 871 ==
LOC: ER 20:46 → TELE3 22:47 → CCU 03-22 01:08 → TELE3 03-22 18:20 → MEDSURG3 03-23 20:56
PROVIDERS: ADMIT Nurse Practitioner Acute Care; ATTEND Internal Medicine
DX: A41.9 Sepsis, unspecified organism (principal); N17.0 Acute kidney failure with tubular necrosis; J96.01 Acute respiratory failure with hypoxia; R53.2 Functional quadriplegia; E43 Unspecified severe protein-calorie malnutrition; G92 Toxic encephalopathy; J69.0 Pneumonitis due to inhalation of food and vomit; D68.69 Other thrombophilia; E87.1 Hypo-osmolality and hyponatremia; R17 Unspecified jaundice; J98.11 Atelectasis; E87.2 Acidosis; K56.7 Ileus, unspecified; B37.49 Other urogenital candidiasis; D69.6 Thrombocytopenia, unspecified; R65.20 Severe sepsis without septic shock; K56.41 Fecal impaction; E83.39 Other disorders of phosphorus metabolism; E83.42 Hypomagnesemia; E86.0 Dehydration; E87.6 Hypokalemia; I25.10 Atherosclerotic heart disease of native coronary artery without angina pectoris; I48.0 Paroxysmal atrial fibrillation; K21.9 Gastro-esophageal reflux disease without esophagitis; R13.12 Dysphagia, oropharyngeal phase; Z79.01 Long term (current) use of anticoagulants; Z86.718 Personal history of other venous thrombosis and embolism; Z86.73 Personal history of transient ischemic attack (TIA), and cerebral infarction without residual deficits; N18.2 Chronic kidney disease, stage 2 (mild); F01.50 Vascular dementia, unspecified severity, without behavioral disturbance, psychotic disturbance, mood disturbance, and anxiety; G20 Parkinson's disease; F02.80 Dementia in other diseases classified elsewhere, unspecified severity, without behavioral disturbance, psychotic disturbance, mood disturbance, and anxiety; Z87.440 Personal history of urinary (tract) infections; I13.10 Hypertensive heart and chronic kidney disease without heart failure, with stage 1 through stage 4 chronic kidney disease, or unspecified chronic kidney disease; R74.0 Nonspecific elevation of levels of transaminase and lactic acid dehydrogenase [LDH]; E11.22 Type 2 diabetes mellitus with diabetic chronic kidney disease; R13.10 Dysphagia, unspecified; M24.575 Contracture, left foot; Z91.81 History of falling
CPT/HCPCS: 36415; 36600; 70030-TC; 70450; 71045; 74018; 83605; 83615; 83735; 84100; 84443; 85025; 85730; 86140; 87040; 87070; 87086; 93005; 93307; 94640; A4217; A4663; C1758; G0378; J0456; J0696; J1450; J2405; J2543; J3370; J3475; J3480; J3490; J7030; J7060; J8499; U0003-CS